=== PATIENT | female | born 1995 | race Caucasian/White ===

== ENCOUNTER 2018-01-04 00:14 | Emergency (ER) | payer OTHER ==
[2018-01-04 00:24] VITALS: BP 125/82
--- NOTE | 2018-01-04 01:22 | EDM.PDOC ---
ED HPI GENERAL MEDICAL PROBLEM - General Chief Complaint: Chest Pain Stated Complaint: CHEST HAS A TINGLY SENSATION Time Seen by Provider: 01/04/18 00:44 Source of Information: Reports: Patient History Limitations: Reports: No Limitations - History of Present Illness INITIAL COMMENTS - FREE TEXT/NARRATIVE: The patient states that she has strange feelings in her jaw, tongue, neck, and chest lasting 20 minutes to an hour, about every other week since fall 2016. She has occasional palpitations, perioral tingling, head tingling, neck tightness, and shakiness. She denies symptoms of dyspnea, feeling like her head might explode, hand tingling, chest pain or chest pressure, abdominal pain, with a sense of walking on rubber legs. She states that she saw her PCP, Dr. Giovanna Reese, in October 2017, and was found to have hypokalemia. She was prescribed potassium chloride that she continues to take. She presents to the ED tonight because of a tingling sensation to her chest. She is hemogram stable, although tachycardic. - Related Data Allergies Allergy/AdvReac Type Severity Reaction Status Date / Time promethazine [From Phenergan] Allergy Confusion Verified 09/29/16 10:09 Home Meds: Home Meds Loperamide [Imodium AD] 2 mg PO TIDMEALS 09/29/16 [History] Past Medical History HEENT History: Reports: Impaired Vision Other HEENT History: wears eyeglasses. Gastrointestinal History: Reports: Bowel Obstruction, Inflammatory Bowel Disease (Ulcerative colitis) Musculoskeletal History: Reports: Fracture Hematologic History: Reports: Blood Transfusion(s) - Past Surgical History GI Surgical History: Reports: Other (See Below) (Total colectomy with primary anastomosis) Social & Family History - Family History Family Medical History: Noncontributory - Tobacco Use Smoking Status *Q: Never Smoker Second Hand Smoke Exposure: No - Caffeine Use Caffeine Use: Reports: Soda - Alcohol Use Alcohol Use History: No - Recreational Drug Use Recreational Drug Use: No - Living Situation & Occupation Living situation: Reports: Single, with Family (Mother, brother) Occupation: Unemployed ED ROS GENERAL - Review of Systems Review Of Systems: ROS reveals no pertinent complaints other than HPI. ED EXAM, GENERAL - Physical Exam Exam: See Below Exam Limited By: No Limitations General Appearance: Alert, WD/WN, No Apparent Distress, Thin Eye Exam: Bilateral Eye: Normal Inspection Ears: Normal External Exam, Hearing Grossly Normal Nose: Normal Inspection, No Blood Throat/Mouth: Normal Inspection, Normal Lips, Normal Voice, No Airway Compromise Head: Atraumatic, Normocephalic Neck: Normal Inspection, Full Range of Motion Respiratory/Chest: No Respiratory Distress, Lungs Clear, Normal Breath Sounds, No Accessory Muscle Use Cardiovascular: Normal Peripheral Pulses, Regular Rate, Rhythm, No Gallop, No JVD, No Murmur, No Rub Peripheral Pulses: 4+: Radial (L), Radial (R) GI/Abdominal: Normal Bowel Sounds, Soft, Non-Tender, No Organomegaly, No Distention, No Abnormal Bruit, No Mass (Female) Exam: Deferred Rectal (Female) Exam: Deferred Back Exam: Normal Inspection, Full Range of Motion, NT Extremities: Normal Inspection, Normal Range of Motion, No Pedal Edema, Normal Capillary Refill Neurological: Alert, Oriented, Normal Cognition, No Motor/Sensory Deficits Psychiatric: Normal Affect Skin Exam: Warm, Dry, Intact, Normal Color, No Rash EKG INTERPRETATION EKG Date: 01/04/18 Time: 01:13 Rhythm: NSR Rate (Beats/Min): 92 [place]: Normal P-Wave: Present QRS: Normal ST-T: Normal QT: Normal Comparison: No Change (09/29/2016) Course - Vital Signs Last Recorded V/S: Last Vital Signs Temp 37.5 C 01/04/18 00:21 Pulse 117 H 01/04/18 00:21 Resp 16 01/04/18 00:21 BP 125/82 01/04/18 00:21 Pulse Ox 98 01/04/18 00:21 - Orders/Labs/Meds Labs: Laboratory Tests 01/04/18 01/04/18 01/04/18 Range/Units 01:05 01:05 01:15 WBC 6.47 (3.98-10.04) K/mm3 RBC 4.70 (3.98-5.22) M/mm3 Hgb 13.8 (11.2-15.7) gm/L Hct 42.7 (34.1-44.9) % MCV 90.9 (79.4-94.8) fl MCH 29.4 (25.6-32.2) pg MCHC 32.3 (32.2-35.5) g/dl RDW Std Deviation 44.0 (36.4-46.3) fL Plt Count 243 (182-369) K/mm3 MPV 9.6 (9.4-12.3) fl Neutrophils % (Manual) 51 (40-60) % Band Neutrophils % 0 (0-10) % Lymphocytes % (Manual) 32 (20-40) % Atypical Lymphs % 2 % Monocytes % (Manual) 10 (2-10) % Eosinophils % (Manual) 2 (0.7-5.8) % Basophils % (Manual) 2 H (0.1-1.2) Myelocytes % 1 Platelet Estimate Adequate Plt Morphology Comment Normal RBC Morph Comment Normal PT (9.5-12.1) SECONDS INR APTT (24-31) SECONDS D-Dimer, Quantitative (0.19-0.50) mg/L Puncture Site ABG pH (7.35-7.45) ABG pCO2 (35.0-45.0) mmHg ABG pO2 (80.0-100.0) mmHg ABG HCO3 (22.0-26.0) meq/L ABG O2 Saturation (96.0-97.0) % ABG Base Excess (-2-2.0) Samuel Test O2 Delivery Device FiO2 (21.00-100.00) % Sodium (136-145) mEq/L Potassium (3.5-5.1) mEq/L Chloride (98-107) mEq/L Carbon Dioxide (21-32) mEq/L Anion Gap (5-15) BUN (7-18) mg/dL Creatinine (0.55-1.02) mg/dL Est Cr Clr Drug Dosing mL/min Estimated GFR (MDRD) (>60) mL/min BUN/Creatinine Ratio (14-18) Glucose (74-106) mg/dL Calcium (8.5-10.1) mg/dL Magnesium (1.8-2.4) mg/dl Total Bilirubin (0.2-1.0) mg/dL AST (15-37) U/L ALT (14-59) U/L Alkaline Phosphatase (46-116) U/L Troponin I (0.00-0.056) ng/mL Total Protein (6.4-8.2) g/dl Albumin (3.4-5.0) g/dl Globulin gm/dL Albumin/Globulin Ratio (1-2) TSH 3rd Generation (0.358-3.74) uIU/mL Urine Color Light yellow (Yellow) Urine Appearance Clear (Clear) Urine pH 6.0 (5.0-8.0) Ur Specific [place] 1.010 (1.005-1.030) Urine Protein Negative (Negative) Urine Glucose (UA) Negative (Negative) Urine Ketones Negative (Negative) Urine Occult Blood Negative (Negative) Urine Nitrite Negative (Negative) Urine Bilirubin Negative (Negative) Urine Urobilinogen 0.2 (0.2-1.0) Ur Leukocyte Esterase Negative (Negative) Urine RBC Not seen (0-5) /hpf Urine WBC 0-5 (0-5) /hpf Ur Epithelial Cells 0-5 (0-5) /hpf Urine Bacteria Few (FEW) /hpf Urine Mucus Not seen (FEW) /hpf Urine HCG, Qual Negative (NEGATIVE) 01/04/18 01/04/18 01/04/18 Range/Units 01:15 01:15 01:20 WBC (3.98-10.04) K/mm3 RBC (3.98-5.22) M/mm3 Hgb (11.2-15.7) gm/L Hct (34.1-44.9) % MCV (79.4-94.8) fl MCH (25.6-32.2) pg MCHC (32.2-35.5) g/dl RDW Std Deviation (36.4-46.3) fL Plt Count (182-369) K/mm3 MPV (9.4-12.3) fl Neutrophils % (Manual) (40-60) % Band Neutrophils % (0-10) % Lymphocytes % (Manual) (20-40) % Atypical Lymphs % % Monocytes % (Manual) (2-10) % Eosinophils % (Manual) (0.7-5.8) % Basophils % (Manual) (0.1-1.2) Myelocytes % Platelet Estimate Plt Morphology Comment RBC Morph Comment PT 10.3 (9.5-12.1) SECONDS INR 0.94 APTT 23 L (24-31) SECONDS D-Dimer, Quantitative 0.28 (0.19-0.50) mg/L Puncture Site Lt radial ABG pH 7.40 (7.35-7.45) ABG pCO2 36.8 (35.0-45.0) mmHg ABG pO2 90.0 (80.0-100.0) mmHg ABG HCO3 22.3 (22.0-26.0) meq/L ABG O2 Saturation 97.9 H (96.0-97.0) % ABG Base Excess -1.5 (-2-2.0) Samuel Test Positive O2 Delivery Device Room air FiO2 21.00 (21.00-100.00) % Sodium 140 (136-145) mEq/L Potassium 3.5 (3.5-5.1) mEq/L Chloride 106 (98-107) mEq/L Carbon Dioxide 26 (21-32) mEq/L Anion Gap 11.5 (5-15) BUN 16 (7-18) mg/dL Creatinine 0.8 (0.55-1.02) mg/dL Est Cr Clr Drug Dosing 98.73 mL/min Estimated GFR (MDRD) > 60 (>60) mL/min BUN/Creatinine Ratio 20.0 H (14-18) Glucose 102 (74-106) mg/dL Calcium 9.3 (8.5-10.1) mg/dL Magnesium 2.0 (1.8-2.4) mg/dl Total Bilirubin 0.4 (0.2-1.0) mg/dL AST 13 L (15-37) U/L ALT 16 (14-59) U/L Alkaline Phosphatase 63 (46-116) U/L Troponin I < 0.017 (0.00-0.056) ng/mL Total Protein 7.2 (6.4-8.2) g/dl Albumin 4.4 (3.4-5.0) g/dl Globulin 2.8 gm/dL Albumin/Globulin Ratio 1.6 (1-2) TSH 3rd Generation 2.150 (0.358-3.74) uIU/mL Urine Color (Yellow) Urine Appearance (Clear) Urine pH (5.0-8.0) Ur Specific [place] (1.005-1.030) Urine Protein (Negative) Urine Glucose (UA) (Negative) Urine Ketones (Negative) Urine Occult Blood (Negative) Urine Nitrite (Negative) Urine Bilirubin (Negative) Urine Urobilinogen (0.2-1.0) Ur Leukocyte Esterase (Negative) Urine RBC (0-5) /hpf Urine WBC (0-5) /hpf Ur Epithelial Cells (0-5) /hpf Urine Bacteria (FEW) /hpf Urine Mucus (FEW) /hpf Urine HCG, Qual (NEGATIVE) - Re-Assessments/Exams Free Text/Narrative Re-Assessment/Exam: 01/04/18 01:58 2-view chest radiograph appears to be grossly normal. Cardiac silhouette is within normal limits. No pulmonary vascular congestion. No pleural effusions. No focal infiltrate. No pneumothorax. Formal read per the Radiologist pending. 01/04/18 03:25 Test results discussed with the patient. While the patient does not appear to be hyperventilating here in the ED at this time, her myriad symptoms are entirely consistent with hyperventilation syndrome, likely due to anxiety, as other known causes of hyperventilation syndrome, such as metabolic acidosis, hypocalcemia, hypoglycemia, hyperthyroidism, liver failure, severe anemia, sepsis, acute coronary event, pneumothorax, pneumonia, dysrhythmia, , PE, and CHF have all been ruled out. I'm recommending that she follow-up with her PCP, Dr. Reese, to discuss treatment options for anxiety. Departure - Departure Time of Disposition: 03:28 Disposition: Home, Self-Care 01 Condition: Good Clinical Impression: Hyperventilation syndrome - Discharge Information Instructions: Hyperventilation Referrals: Giovanna Reese MD [Primary Care Provider] - Forms: ED Department Discharge Additional Instructions: You were seen in the emergency room for a variety of symptoms, including tingling of your jaw, tongue, neck, chest, and head, along with occasional palpitations, shakiness, and neck tightness. Workup in the ER included blood work, an arterial blood gas, a urinalysis, a urine test, a chest x-ray, and an ECG. Your entire workup was unremarkable, ruling out known medical causes of hyperventilation. By a process of elimination, the cause of your symptoms is MOST LIKELY anxiety disorder. We recommend that you follow-up with your PCP, Dr. Giovanna Reese, to discuss treatment options for anxiety. If any other problems, please do not hesitate to return to the ER.
--- NOTE | 2018-01-04 07:22 | CR ---
Chest: Two views of the chest were obtained. Comparison: No prior study. Heart size and mediastinum are normal. Lungs are clear. Bony structures are within normal limits. Impression: 1. Nothing acute is seen on two-view chest x-ray. Diagnostic code #1
== END 2018-01-04 03:34 | disposition home or self-care (01) ==
LOC: JD.ED 00:14
DX: F45.8 Other somatoform disorders (principal); Z88.8 Allergy status to other drugs, medicaments and biological substances; Z79.899 Other long term (current) drug therapy
CPT/HCPCS: 36415; 36600; 71046; 71046-26; 80053; 81001; 81025; 82803; 83735; 84443; 84484; 85025; 85379; 85610; 85730; 93005; 99283; 99285-25